=== PATIENT | male | born 1985 | race Caucasian/White ===

== ENCOUNTER 2022-02-07 23:26 | Emergency (ER) | payer BC, SELFPAY ==
--- NOTE | 2022-02-07 23:32 | CTR_ITS ---
PROCEDURE INFORMATION: Exam: CT Abdomen And Pelvis With Contrast Exam date and time: 02/08/2022 12:07 AM Age: 36 years old Clinical indication: Vomiting; Patient HX: Patient has been taking large amounts of otc anti-inflammitories due to toothache and had onset of hematoemesis today. ; Additional info: Blood in vomit, n/v TECHNIQUE: Imaging protocol: Computed tomography of the abdomen and pelvis with contrast. Radiation optimization: All CT scans at this facility use at least one of these dose optimization techniques: automated exposure control; mA and/or kV adjustment per patient size (includes targeted exams where dose is matched to clinical indication); or iterative reconstruction. Contrast material: OMNI 350; Contrast volume: 95 ml; Contrast route: INTRAVENOUS (IV); COMPARISON: No relevant prior studies available. RADIATION DOSE METRICS: Total DLP (mGy-cm): 1492.35 FINDINGS: Mediastinal space: Bulky distal esophageal varices. Liver: Liver configuration is consistent with cirrhosis. No discrete mass. Gallbladder and bile ducts: Normal. No calcified stones. No ductal dilation. Pancreas: Normal. No ductal dilation. Spleen: Mild splenomegaly. Adrenal glands: Normal. No mass. Kidneys and ureters: Normal. No hydronephrosis. Stomach and bowel: Unremarkable. No obstruction. No mucosal thickening. Appendix: No evidence of appendicitis. Intraperitoneal space: Unremarkable. No free air. No significant fluid collection. Arteries: Unremarkable. No abdominal aortic aneurysm. Lymph nodes: Unremarkable. No enlarged lymph nodes. Urinary bladder: Unremarkable as visualized. Reproductive: Unremarkable as visualized. Bones/joints: No acute fracture. Soft tissues: Unremarkable. CT/CT abdomen pelvis w con* [id number] IMPRESSION: Advanced cirrhosis with associated distal esophageal varices and mild splenomegaly.
[2022-02-07 23:34] VITALS: BP 95/59; PULSE 98; RESP 16; TEMP 36.4; O2SAT 96; BMI 25.8
--- NOTE | 2022-02-07 23:47 | W.ED.GENADLT ---
HPI - General Adult General: Chief complaint: General Medical Stated complaint: Throwing up blood Time Seen by Provider: 02/07/22 23:40 History of Present Illness: 36-year-old male patient comes in today with an episode of throwing up blood. Patient reports that he has been using ibuprofen and naproxen due to toothache. Tonight after taking medication patient threw up what his reports is a large amount of blood. Patient is pale. Respirations are even. Patient reports some jaw pain from his dental infection. Patient denies any other routine medications or any chronic medical problems. Patient has reported problems with black stools in the past. Patient denies any black or bloody stools at this time. Associated symptoms: Deny chest pain, dyspnea or headache(s) Review of Systems General: Reports: 10 or more systems reviewed and unremarkable except in HPI and below Const: Denies: fever(s) Card: Denies: chest pain Resp: Denies: dyspnea GI: Reports: hematemesis Musc: Denies: neck pain or back pain Neuro: Denies: headache(s) [facility] ED PFSH: Social History (Updated 03/20/20 @ 14:41 by Sharlene Perry LPN) Smoking and tobacco status: current every day smoker Physical Exam Const: COMMON NORMALS: alert Neck/C-Spine: COMMON NORMALS: full ROM Resp: COMMON NORMALS: normal respiratory effort and clear to auscultation bilaterally AUSCULTATION: clear to auscultation bilaterally Cardio: COMMON NORMALS: regular rate and regular rhythm RATE: regular rate RHYTHM: regular rhythm GI: COMMON NORMALS: Soft to palpation and non-tender PALPATION: Yes Soft to palpation RECTAL EXAM: Yes visual inspection normal, Yes normal sphincter tone and Yes heme positive stool Extremity: COMMON NORMALS: normal to inspection Neuro: SENSORIUM/ORIENTATION: Yes alert Course ED course: 0025, reviewed patient with Dr. Padilla. Hemoglobin was 7.1, he ordered 2 units of packed blood cells. Rectal exam was done no hemorrhoids were noted, patient did have some brownish colored stool that tested positive for occult blood. Patient did admit that he was alcoholic up until 3 years ago and has not had any further alcohol since then 56, reviewed CT with Dr. Padilla. Noted esophageal varices along with liver cirrhosis. He recommended patient be transferred to a higher level of care due to the varices and further treatment needed by livestock nutritionist specialist. 0141, patient resting well. No further bleeding is noted at this time. We will transfer patient to [facility] for further evaluation and treatment. Patient family agreed. Vital Signs: Vital signs: Vital Signs Temperature 97.6 F 02/07/22 23:34 Pulse Rate 82 02/08/22 00:00 Respiratory Rate 18 02/08/22 01:27 Blood Pressure 92/44 02/08/22 00:00 Pulse Oximetry 97 02/08/22 01:27 [facility] - General Adult Medical Decision Making 36-year-old male patient comes in today for complaints of throwing up blood. Patient reports that he has been using ibuprofen significantly due to some dental pain. Spouse reports noticing a lot of blood. On exam patient is pale. Blood pressure is low at 95 systolic. Respirations are even lungs are clear to auscultation abdomen soft nontender. Skin is warm and dry. Differential diagnosis includes GI bleed, peptic ulcer disease, esophageal varices. CT of the abdomen and pelvis noted cirrhosis with varices. CBC noted a 8 hemoglobin of 7.1, LFTs were normal, sodium was 135, no further episodes of vomiting was noted. Patient was given 80 mg of pantoprazole IV. Was given 1 L of IV normal saline. Patient's blood pressure came up to 106 systolic. Patient appeared much better. Patient was typed and crossed for 2 units of blood to be infused. I reviewed this patient with Dr. Padilla recommended patient be transferred to a higher level of care for gastroenterology support. Talked with [facility], Dr. Cassidy accepted patient for transport. Lab Data : 02/08/22 00:00 02/08/22 00:00 Radiology Impressions Abdomen/Pelvis CT 02/07/22 23:32 IMPRESSION: Advanced cirrhosis with associated distal esophageal varices and mild splenomegaly. Laboratory Results WBC 5.2 10^3/uL (4.0-10.0) 02/08/22 00:00 RBC 3.46 10^6/uL (4.1-5.3) L 02/08/22 00:00 Hgb 7.1 g/dL (11.7-16.6) L 02/08/22 00:00 Hct 25.3 % (42.0-52.0) L 02/08/22 00:00 MCV 73.1 fl (80-94) L 02/08/22 00:00 MCH 20.5 pg (28.0-34.0) L 02/08/22 00:00 MCHC 28.1 g/dL (30.0-36.0) L 02/08/22 00:00 RDW 21.2 % (12.1-15.1) H 02/08/22 00:00 Plt Count 132 10^3/cmm (130-400) 02/08/22 00:00 MPV Not Reportable 02/08/22 00:00 Neut % (Auto) 77.0 % 02/08/22 00:00 Lymph % (Auto) 10.7 % 02/08/22 00:00 [place] % (Auto) 10.5 % 02/08/22 00:00 Eos % (Auto) 1.0 % 02/08/22 00:00 Baso % (Auto) 0.4 % 02/08/22 00:00 Neut # (Auto) 4.04 10^3/uL (1.8-7.7) 02/08/22 00:00 Lymph # (Auto) 0.6 10^3/uL (0.8-4.8) L 02/08/22 00:00 [place] # (Auto) 0.6 10^3/uL (0.2-0.9) 02/08/22 00:00 Eos # (Auto) 0.1 10^3/uL (0.0-0.8) 02/08/22 00:00 Baso # (Auto) 0.0 10^3/uL (0.0-0.1) 02/08/22 00:00 Nucleated RBC % (auto) 0 % 02/08/22 00:00 Nucleated RBCs # 0.0 /100WBC 02/08/22 00:00 PT 17.30 SECONDS (12.1-14.9) H 02/08/22 00:37 INR 1.38 (0.8-1.2) H 02/08/22 00:37 Sodium 135 mmol/L (136-145) L 02/08/22 00:00 Potassium 4.5 mmol/L (3.5-5.1) 02/08/22 00:00 Chloride 104 mmol/L (98-107) 02/08/22 00:00 Carbon Dioxide 21 mmol/L (22-29) L 02/08/22 00:00 Anion Gap 14.5 (5-19) 02/08/22 00:00 BUN 25 mg/dL (6-20) H 02/08/22 00:00 Creatinine 0.7 mg/dL (0.7-1.2) 02/08/22 00:00 GFR Calculation 127.6 mL/min (90-130) 02/08/22 00:00 Glucose 135 mg/dL (65-115) H 02/08/22 00:00 Calculated Osmolality 286 mOsm/kg (285-295) 02/08/22 00:00 Calcium 8.0 mg/dL (8.5-10.5) L 02/08/22 00:00 Total Bilirubin 1.0 mg/dL (0.15-1.2) 02/08/22 00:00 AST 34 U/L (0-40) 02/08/22 00:00 ALT 23 U/L (0-41) 02/08/22 00:00 Alkaline Phosphatase 141 IU/L (40-130) H 02/08/22 00:00 Total Protein 6.2 g/dL (6.6-8.7) L 02/08/22 00:00 Albumin 3.8 g/dL (3.5-5.2) 02/08/22 00:00 Globulin 2.4 g/dL (1.3-4.6) 02/08/22 00:00 Blood Type B Positive 02/08/22 00:47 Rho(D) Type Positive 02/08/22 00:47 Discharge Plan Discharge Clinical Impression: Acute GI bleeding Esophageal varices Qualifiers: Esophageal varices type: unspecified type Esophageal varices bleeding: with bleeding Qualified Code(s): I85.01 - Esophageal varices with bleeding Condition: Stable Prescriptions: No Action No Known Home Medications 0RF Coding Level of Care Code ED Nursery Manager for Chg Fwd Exam Detailed
[2022-02-08] VITALS (8 sets, daily range): BP systolic 92–111; BP diastolic 44–60; PULSE 76–88; RESP 14–18; TEMP 37.2; O2SAT 95–97
[2022-02-08] MEDS: iohexol 300 mg/mL 100 mL Btl IV (00:06)
[2022-02-08 00:09] LABS: Basophils % 0.4 %; Eosinophils # 0.1 10^3/uL (0.0-0.8); Hematocrit 25.3 % (42.0-52.0); Hemoglobin 7.1 g/dL (11.7-16.6); Lymphocytes # 0.6 10^3/uL (0.8-4.8); Lymphocytes % 10.7 %; Mean Corpuscular HGB Conc 28.1 g/dL (30.0-36.0); Mean Corpuscular Hemoglobin 20.5 pg (28.0-34.0); Mean Corpuscular Volume 73.1 fl (80-94); Monocytes # 0.6 10^3/uL (0.2-0.9); Monocytes % 10.5 %; Neutrophils # 4.04 10^3/uL (1.8-7.7); Nucleated Red Blood Cells % 0 %; Platelet Count 132 10^3/cmm (130-400); Red Blood Count 3.46 10^6/uL (4.1-5.3); Red Cell Distribution Width 21.2 % (12.1-15.1); White Blood Count 5.2 10^3/uL (4.0-10.0)
[2022-02-08] MEDS: sodium chloride 0.9% 1,000 ML 999 ML IV (00:22)
[2022-02-08] MEDS: ondansetron 2 mg/ML SDV 2 mL 4 MG IVP (00:23)
[2022-02-08] MEDS: pantoprazole 40 mg SDV 80 MG IVP (00:23)
[2022-02-08 00:29] LABS: Alanine Aminotransferase 23 U/L (0-41); Albumin Level 3.8 g/dL (3.5-5.2); Alkaline Phosphatase 141 IU/L (40-130); Anion Gap 14.5 (5-19); Aspartate Amino Transferase 34 U/L (0-40); Blood Urea Nitrogen 25 mg/dL (6-20); Carbon Dioxide 21 mmol/L (22-29); Chloride 104 mmol/L (98-107); Globulin 2.4 g/dL (1.3-4.6); Glomerular Filtration Rate 127.6 mL/min (90-130); Glucose 135 mg/dL (65-115); Osmolality Calculated 286 mOsm/kg (285-295); Potassium 4.5 mmol/L (3.5-5.1); Sodium 135 mmol/L (136-145); Total Protein 6.2 g/dL (6.6-8.7)
[2022-02-08 01:01] LABS: INR 1.38 (0.8-1.2)
[2022-02-08] MEDS: fentaNYL 50 mcg/mL INJ 2mL 25 MCG IVP (01:27)
== END 2022-02-08 01:30 ==
PROVIDERS: Emergency Provider Nurse Practitioner Family
DX: I85.01 Esophageal varices with bleeding (principal); K74.60 Unspecified cirrhosis of liver; Z79.1 Long term (current) use of non-steroidal anti-inflammatories (NSAID); F10.21 Alcohol dependence, in remission; K08.89 Other specified disorders of teeth and supporting structures; F17.200 Nicotine dependence, unspecified, uncomplicated; R19.5 Other fecal abnormalities
CPT/HCPCS: 36430; 74177; 80053; 85025; 85610; 86850; 86900; 86920; 96361; 96374; 96375; 99285; C9113; J2405; J3010; J7030; P9016; Q9967

== ENCOUNTER → 2022-08-26 09:57 | Outpatient (BNVA) | payer BC, SELFPAY | PROVIDERS: Visit Provider Podiatrist Foot & Ankle Surgery | DX: B35.1 Tinea unguium (principal) | CPT/HCPCS: 82977; 83615; 84450; 84460 ==